=== PATIENT | male | born 1965 | race Caucasian/White ===

== ENCOUNTER → 2016-08-22 | Outpatient (CLI) | payer MEDICARE, OTHER ==
--- NOTE | 2016-08-22 16:52 | MR ---
EXAMINATION TYPE: MR knee RT wo con DATE OF EXAM: 08/22/2016 12:48 PM COMPARISON: NONE HISTORY: Right knee pain. TECHNIQUE: Multiplanar, multisequence imaging of the right knee is performed without IV contrast. FINDINGS: MEDIAL MENISCUS: The posterior horn medial meniscus has increased signal within its internal substanc e compatible with an internal derangement or degenerative change. Anterior horn of the medial meniscu s appears normal. LATERAL MENISCUS: Anterior and posterior horns are intact without tear. CRUCIATE LIGAMENTS: The anterior and posterior cruciate ligaments are intact and unremarkable. COLLATERAL LIGAMENTS: The medial collateral ligament and lateral collateral ligament complex are inta ct and unremarkable. EXTENSOR MECHANISM: Visualized quadriceps and patellar tendons are intact. EFFUSION: Small suprapatellar joint effusion is present. Small amount of fluid is within the joint s pace. POPLITEAL CYST: No popliteal/payne cyst. TRICOMPARTMENT SPACES: Normal CARTILAGE: Significant thinning of the articular cartilage is not evident. BONE MARROW SIGNAL: There is increased signal within the posterior lateral tibial plateau could repre sent contusion. The distal femoral condyles appear normal. A posterior lateral patellar contusion may be present. The overlying articular cartilage have increased signal. Fracture of the articular carti jackie is not excluded. OTHER: No additional significant abnormality is appreciated. IMPRESSION: Suspected contusion and possible injury to the articular cartilage of the posterior lateral patella. 2. Contusion of the posterior lateral tibial plateau. 3. Small joint effusion. 4. Internal derangement, type I tear, of the posterior horn medial meniscus.
== END | disposition home or self-care (01) ==
LOC: RADMRIMAIN 12:09
PROVIDERS: ATTEND Family Medicine
DX: S80.01XA Contusion of right knee, initial encounter (principal)

== ENCOUNTER → 2017-11-24 | Outpatient (CLI) | payer MEDICARE, OTHER ==
--- NOTE | 2017-11-24 13:37 | EST ---
EXERCISE STRESS DATE OF SERVICE: 11/24/2017 AGE: 52 SEX: Male HT: 5'11" WT: 280 pounds PROTOCOL: Victor M STAGE: I DURATION OF EXERCISE: 1 minutes 53 seconds HEART RATE REST: 94 BLOOD PRESSURE REST: 131/77 MAXIMUM HEART RATE ACHIEVED: 133 MAXIMUM BLOOD PRESSURE: 173/78 85% MPHR: 142 100% MPHR: 167 METS: 3.2 INDICATIONS: Chest pain. CLINICAL INFORMATION: Baseline rhythm is sinus mechanism, rate 94, borderline left axis deviation, poor R progression. Baseline blood pressure 131/77 mmHg. Patient was exercised on Victor M protocol for 1 minute 53 seconds reaching peak rate of 133 beats per minute, which is equal to 79% of maximum predicted heart rate. Test was terminated secondary to fatigue. There was no chest pain. Peak blood pressure 173/78 mmHg. Electrocardiographic monitoring revealed no evidence of diagnostic ischemic ST deviation. CONCLUSION: 1. Poor exercise tolerance. 2. Nondiagnostic electrocardiographic stress testing secondary to the inability to achieve 85% maximum predicted heart rate. 3. If clinically indicated, a pharmacological myocardial perfusion imaging will be helpful. MMODL / IJN: [id number] /
== END | disposition home or self-care (01) ==
LOC: RADNMMAIN 10:44
PROVIDERS: ATTEND Family Medicine
DX: R07.89 Other chest pain (principal)
CPT/HCPCS: 93017

== ENCOUNTER → 2019-01-07 | Outpatient (CLI) | payer MEDICARE, OTHER ==
--- NOTE | 2019-01-07 15:50 | XR ---
EXAMINATION TYPE: XR chest 2V DATE OF EXAM: 01/07/2019 COMPARISON: 05/18/2012 HISTORY: 53-year-old male with cough TECHNIQUE: AP and lateral views FINDINGS: Heart limits of normal in size. Diffuse interstitial prominence is unchanged. Focal opacity periphera l left base is redemonstrated. No pleural effusion or other consolidation seen. IMPRESSION: Focal peripheral left basilar opacity, suspected to represent pleural parenchymal scarring. Superimpo sed underlying acute infiltrate would be difficult to exclude. Follow-up can be considered.
== END | disposition home or self-care (01) ==
LOC: RADXRMAIN 13:01
PROVIDERS: ATTEND Family Medicine
DX: R05 Cough (principal)
CPT/HCPCS: 71046

== ENCOUNTER → 2019-04-13 | Outpatient (CLI) | payer MEDICARE, OTHER | END | disposition home or self-care (01) | LOC: CPPFTMAIN 10:44 | PROVIDERS: ATTEND Internal Medicine Critical Care Medicine | DX: J44.9 Chronic obstructive pulmonary disease, unspecified (principal) | CPT/HCPCS: 94060; 94726; 94729 ==

== ENCOUNTER → 2019-07-08 | Outpatient (CLI) | payer MEDICARE, OTHER | END | disposition home or self-care (01) | LOC: LABWHC1 11:18 | PROVIDERS: ATTEND Internal Medicine Critical Care Medicine | DX: R05 Cough (principal); R53.83 Other fatigue; R06.02 Shortness of breath | CPT/HCPCS: 36415; 82785; 85008 ==

== ENCOUNTER → 2019-07-18 | Outpatient (CLI) | payer MEDICARE, OTHER ==
--- NOTE | 2019-07-18 13:27 | CT ---
EXAMINATION TYPE: CT chest wo con DATE OF EXAM: 07/18/2019 COMPARISON: Chest x-ray 01/07/2019 HISTORY: COPD. CT DLP: 1862.6 mGycm. Automated Exposure Control for Dose Reduction was Utilized. TECHNIQUE: CT scan of the thorax is performed without IV contrast and with high-resolution technique . FINDINGS: LUNGS: Pleural based thickening is seen involving the left Lower lobe and lingular segment upper lobe. There is no significant interlobular septal thickening to suggest interstitial lung disease. No consolidative process or pleural effusion. No pneumothorax. Diaz bsegmental changes involving both lungs is most typical of atelectasis MEDIASTINUM: Lack of IV contrast is noted to limit evaluation for mediastinal and especially hilar ad enopathy. There are no definitive greater than 1 cm hilar or mediastinal lymph nodes. Heart mildly pr ominent with no sizable pericardial effusion. Tracheobronchial calcifications noted.. OTHER: Hypertrophic and degenerative change of the spine.. IMPRESSION: 1. Chronic pleural-based thickening on the left with no diagnostic evidence of acute intrathoracic pr ocess or interstitial chronic lung disease.
== END | disposition home or self-care (01) ==
LOC: RADCTMAIN 12:10
PROVIDERS: ATTEND Internal Medicine Critical Care Medicine
DX: J92.9 Pleural plaque without asbestos (principal); J44.9 Chronic obstructive pulmonary disease, unspecified
CPT/HCPCS: 71250

== ENCOUNTER → 2020-11-16 | Outpatient (CLI) | payer MEDICARE, OTHER ==
--- NOTE | 2020-11-16 21:02 | CT ---
EXAMINATION TYPE: CT soft tissue neck w con DATE OF EXAM: 11/16/2020 COMPARISON: None HISTORY: Right sided neck mass/lump. BB placed on region of interest. CT DLP: 726.2 mGycm Automated exposure control for dose reduction was used. CONTRAST: Performed with IV Contrast, patient injected with 100ml mL of Isovue 300. Images obtained from the aortic arch to the top of the orbits with IV contrast. There is no evidence of orbital mass. There is mild mucosal thickening in the sphenoid and left maxil danny sinus. Zygomatic arches appear normal. The maxilla is intact. Submandibular salivary glands are symmetric. The parotid glands are symmetric. There are some spondylotic changes in the cervical spine. Epiglottis is normal. Prevertebral soft tis sues are within normal limits. The tonsils and adenoids are within normal limits. The tongue appears normal. There is no evidence of pharyngeal mass. There is normal enhancement of the carotid arteries and jugular veins. There is normal enhancement of the vertebral arteries. There is thin wall cystic fluid collection in the subcutaneous tissues anterior to the right parotid gland. This appears separate from the gland and appears to arise from the subcutaneous fat over the d ermis. The density is T10 and consistent with simple fluid. There is normal enhancement of the visualized intracranial venous sinuses. The skull base is intact. There is incomplete pneumatization of the mastoid sinuses. External auditory canals appear normal. Th ere is no evidence of posterior fossa mass. IMPRESSION: Thin wall cystic subcutaneous mass on the right side in the area of concern. This could be a seroma o r chronic hematoma. Sebaceous cyst also possible. Features appear benign.
== END | disposition home or self-care (01) ==
LOC: RADCTMAIN 17:02
PROVIDERS: ATTEND Otolaryngology
DX: R22.1 Localized swelling, mass and lump, neck (principal)
CPT/HCPCS: 70491; Q9967

== ENCOUNTER → 2021-01-04 | Day surgery (SDC) | payer MEDICARE, OTHER ==
[2021-01-02 08:50] VITALS: BMI 39.9
[~2021-01-04] MED LIST: ACETAMINOPHEN IV (For NPO) 1,000 MG in EMPTY BAG 1 BAG IVPB ONE; BACITRACIN ZINC 500 UNIT/GM OINT 28.4 GM TUBE TOPICAL ONE; DEXAMETHASONE SOD PHOSPHATE 4 MG/ML 1 ML VIAL IV ONE; HYDROmorphone 0.5 MG/0.5 ML SYRINGE IVP ONE; LACTATED RINGERS 1,000 ML IV SCH; LIDOCAINE 1% (10MG/ML) FOR IV START INTRADERMA PRN; LIDOCAINE 1% INJ 10MG/ML (20 ML MDV) ONE; MIDAZOLAM 2 MG/2 ML VIAL IVP ONE; ONDANSETRON 4 MG/2 ML VIAL IVP ONE; ONDANSETRON 4 MG/2 ML VIAL ONE; PROPOFOL 10 MG/ML 20 ML VIAL IV ONE; Pre Op ABX Message 1 EACH MISC MISCELLANE ONE; SODIUM CHLORIDE 0.9% 100 ML BAG ONE; SUCCINYLCHOLINE CHLORIDE 100 MG/5 ML SYR IV ONE; ceFAZolin 1,000 MG VIAL ONE; fentaNYL (PF) 50 MCG/ML 2 ML AMP ONE
--- NOTE | 2021-01-04 01:00 | HP ---
HISTORY AND PHYSICAL CHIEF COMPLAINT: Right facial mass. HISTORY OF PRESENT ILLNESS: This patient is a 55-year-old male who was recently referred to my office for evaluation of a mass on the right side of his face. The patient states that he thinks it has been there for at least 8-10 years. It does not cause any discomfort and does not interfere with his speech or with swallowing. Unfortunately, this gentleman apparently is not able to read or write. I suggested to him that he speak with his cloth hand and even at his age, it is possible for him to learn some basic reading skills and how to write. The patient states the area is not tender. When it first appeared, he tried squeezing the area and nothing came out. However, the area eventually got larger. I advised him to stop doing this for obvious reasons. He has not had any x-ray work. He smokes approximately 2 packs of cigarettes per day and has been advised to quit for obvious health reasons. He states that he is going his primary care physician Dr. Cancino for prescription for Chantix. At the time the patient was seen in my office, clinical examination revealed the patient to have 2 1/2 -3 cm well circumscribed, nonmobile, soft, nontender mass located in the right side of the face in the region of the right parotid gland. No other associated neck masses were noted. A CT scan of the neck was subsequently obtained with contrast and this showed evidence of a right cystic parotid lesion which appeared to be subcutaneous and lying just above the medial aspect of the right parotid gland. It did not appear to involve the actual parotid gland. The patient was quite anxious to have this removed and I advised him that this could be removed. I recommend to the patient that he shave his cantor and because he is on Xarelto, because of peripheral vascular disease (the patient has a history of having had a deep vein thrombosis in his leg. This was in 2004). The patient was subsequently placed on Xarelto for this. Because of the facial surgery, it was recommended that the patient be off the Xarelto for at least several days before any type of surgical procedure, preferably a week if possible. PAST MEDICAL HISTORY: The patient has no known allergies. MEDICATIONS: His current medications include a baby aspirin daily, prednisone, Irbesartan, Lisinopril, Zantac, Z-Ramiro, Advair, baclofen, nicotine patch, Ventolin inhaler, Spiriva, Atrovent, Dulera, Xanax, Bethel, Pepcid, Latuda, Xarelto, Guaifenesin, Flonase nasal spray, Eliquis, Breo Ellipta, Mag Landers nebulizer, and multivitamins. REVIEW OF SYSTEMS: Reveals cardiovascular system, positive for hypertension, ASHD. Respiratory system is positive for COPD, asthma and emphysema. Gastrointestinal system is positive for GERD (gastroesophageal reflux disorder). METABOLIC/ENDOCRINE system is negative. MUSCULOSKELETAL SYSTEM: Is positive for osteoarthritis. The remainder of review of systems is unremarkable. PHYSICAL EXAMINATION: Patient is a 55-year-old male who is alert, cooperative and well-oriented to time and place. HEENT examination: Patient is normocephalic. Tympanic membranes are normal. Middle ear spaces are free of any fluid or infection. Pupils equal, round, react to light and accommodation. Extraocular movements within normal limits. Intranasal examination reveals moderate to severe septal deviation with compensatory hypertrophy inferior turbinates. Examination of oropharynx is unremarkable. Palpation neck is unremarkable. Palpation of the right facial area reveals the patient has a 2.5 to 3 cm well-circumscribed, nontender, nonmobile, nonfluctuant mass located in the region of the right parotid gland. Cranial nerves 2 through 12 and remainder of the head and neck exam are within normal limits. Chest/cardiovascular: Both lung sood are clear to percussion and auscultation. The patient is in regular sinus rhythm. S1 and S2 are present without evidence any murmurs S3s or S4. Peripheral pulses are bilaterally symmetrical. ABDOMEN: There is no evident masses, megaly or tenderness. Abdomen: Soft. SKIN is unremarkable. MUSCULOSKELETAL, NEUROLOGICAL within normal limits. Rectal examination is deferred at this time because the patient has this done on a regular basis at his family physician's office. The remainder of physical exam is unremarkable. IMPRESSION: Right facial mass. PLAN: The patient scheduled to undergo complete excision of right facial mass under general anesthesia in the a.m. Attention RNs in the pre-surgical area:. I have ordered for this patient to receive 1000 mg of Ofirmev IV to be given once an intravenous line has been established. In addition to this, I have ordered for the patient to receive 2 grams of Ancef IV to be given once an intravenous line has been established. If the pharmacy department sends a different pre-surgical prophylactic antibiotic to the pre-surgical area for this patient, please cancel that order, return the medication to the pharmacy department, and make sure that the patient's account is credited appropriately. I have discussed the risks, benefits and alternative therapies for the above-mentioned procedure and for both sedation/analgesia as well as necessary blood product administration, if indicated, as they pertain to this patient. The patient has indicated his or her understanding and acceptance of the risks and procedures discussed. MMODL / IJN: [id number] /
[2021-01-04 15:17] VITALS: TEMP 97
[2021-01-04 15:56] VITALS: PULSE 80
[2021-01-04 16:10] VITALS: RESP 17
[2021-01-04 16:25] VITALS: BP 148/84
--- NOTE | 2021-01-05 16:04 | OP ---
OPERATIVE REPORT DATE OF SURGERY: 01/04/2021. PREOPERATIVE DIAGNOSIS: Right facial mass (approximately 3 to 3.5 cm ,ovoid shaped). POSTOPERATIVE DIAGNOSIS: Right facial mass (approximately 3 to 3.5 cm , ovoid shaped). ANESTHESIA: General. OPERATIVE PROCEDURE: Complete excision of right facial mass (3-3.5 cm) with preservation of the peripheral branches of the facial nerve. This was a complex multilayer closure. OPERATING SURGEON: Dr. Cruz. COMPLICATIONS: None. ESTIMATED BLOOD LOSS: Less than 25 mL. Total operating time: Starting at 1:30, ending at approximately 3:35 for a total operating time of approximately 2 hours and 5 minutes. OPERATIVE PROCEDURE: The patient was placed on the operating table in supine position. After uneventful induction and endotracheal intubation, satisfactory general anesthesia was obtained. The patient's right sherin face was prepped and draped down to the level of the clavicles in the usual and customary fashion. Following this, inspection of the area revealed the mass to be approximately 3 cm in its largest dimension and it appeared to be deep. No local anesthetic was used because of the proximity of the branches of the facial nerve in the region of the wound/incision. Next, using a Codman marker and placing the proposed incision in one of the natural skin creases, an incision was outlined with a Codman marker in an elliptical fashion so that a portion/strip of skin would be excised along with the mass to compensate for the stretching of the overlying skin by this mass. Next, using a #15 scalpel blade, incision was made through skin only down to the level of the overlying fat and fascia. So as not to violate the mass, the dissection was begun at the superior aspect of the incision which had been outlined with a Codman marker. The dissection was carried out mainly bluntly using a combination of mosquito hemostats and peanut. Immediately upon dissecting down beneath the superficial fascia of the fatty tissue down to the level of the underlying fascia, which overlaid the parotid gland and the mass, it was noted that there was a significant amount of inflammatory reaction. Once the underlying and vesting fascia of the parotid gland was breached and the dissection was started, it was noted that the mass was quite adherent to the surrounding tissue and was quite deep and adherent to the underlying muscle. Hence this surgery which began at approximately 1:30 and ended at approximately 3:05 was quite tedious and more difficult because of the inflammatory reaction. This necessitated that the dissection be very slow, so as not to leave any of the mass or tear the mass and leave any of it behind. The mass apparently was sitting directly on the underlying facial muscles. In addition to this, the dissecting field was also noted to be in the area where the branches of the facial nerve exited the parotid gland. Therefore, care had to be taken in these areas especially superiorly where the ophthalmic branch of the facial nerve was known to be located. Therefore, cautery was used on a very low setting. Initially, the overlying skin and subcutaneous fat was dissected off the mass bluntly with the mosquito hemostats and the peanut and this was carried out down to the level of the floor of the wound which was the underlying facial muscles. This dissection was begun superiorly and carried out inferiorly on the most medial lateral flap of the wound beginning superior and inferiorly and again using mosquito hemostats and peanuts, assisted with various retractors/skin hooks. Hemostasis was accomplished using the electrocautery on a very low setting. Again, the dissection was very slow and tedious because of the inflammatory reaction that had been set up around the mass. After careful dissection, the mass was dissected down to the floor of the wound and subsequently was able to be completely excised. Only a minimal breach of the mass itself from which a small combination of fluid in a somewhat cheesy substance extruded. Overall, the mass was dissected intact and was excised totally and placed in formalin and sent to Pathology for permanent sectioning. Along with the overlying skin, which had been resected with the mass. The entire wound was irrigated thoroughly with warm normal saline. Inspection did not reveal any obvious neural elements and therefore the wound closure was started. This wound was closed in a complex fashion using initially 5- rapid absorbing Vicryl to reapproximate the deep fascia layers and subsequently using 5-0 rapid absorbing Vicryl in an interrupted fashion to approximate the subcutaneous tissue. The fatty tissues were reapproximated using 4-0 rapid absorbing Vicryl in interrupted fashion. The skin was then approximated using 4-0 rapid absorbing Vicryl in an interrupted buried fashion. It is to be noted that no active bleeding was noted during or prior to the beginning of closure. Finally, the skin edges were further approximated using surgical delfino in the usual fashion. At this point, the procedure was terminated. The patient was given 2 grams of Ancef and 1000 mg of Ofirmev intravenously preoperatively. The patient tolerated the procedure well. Estimated blood loss less than 25 mL. The operating time was extended to a total of 2 hours and 5 minutes, that is to say from 130- 3:35 pm due to the extensive inflammatory reaction surrounding the mass which significantly slowed the dissection and because the mass was quite adherent to the surrounding tissue. In addition to this, there was the concern with regard to any peripheral branches of the facial nerve that might be located in the area. This was a complex wound closure. The patient was returned to the recovery room in satisfactory condition. MMODL / DAVIDN: [id number] / [id number]
== END | disposition home or self-care (01) ==
LOC: OR 11:06
PROVIDERS: ATTEND Otolaryngology
DX: L72.0 Epidermal cyst (principal); F17.210 Nicotine dependence, cigarettes, uncomplicated; I10 Essential (primary) hypertension; I25.10 Atherosclerotic heart disease of native coronary artery without angina pectoris; J44.9 Chronic obstructive pulmonary disease, unspecified; J43.9 Emphysema, unspecified; K21.9 Gastro-esophageal reflux disease without esophagitis; M19.90 Unspecified osteoarthritis, unspecified site; Z86.718 Personal history of other venous thrombosis and embolism; Z86.73 Personal history of transient ischemic attack (TIA), and cerebral infarction without residual deficits; Z97.2 Presence of dental prosthetic device (complete) (partial); Z79.01 Long term (current) use of anticoagulants; Z79.82 Long term (current) use of aspirin; Z79.891 Long term (current) use of opiate analgesic; Z79.51 Long term (current) use of inhaled steroids; Z79.52 Long term (current) use of systemic steroids; Z79.899 Other long term (current) drug therapy
CPT/HCPCS: 11443; 13132; 88304; J2250; J1100; J2405; J0690; J2001; J3010; J0131; J0330; J2704; J1170